=== PATIENT | male | born 1970 | race Caucasian/White ===

== ENCOUNTER 2020-12-15 17:01 | Emergency (ER) | payer MEDICAID ==
[~2020-12-15] VITALS: Ht 167.6 cm; Wt 72.6 kg
[2020-12-15 17:06] VITALS: BP 167/91
--- NOTE | 2020-12-15 17:14 | NUR ---
pt taken to bed 03 via wheelchair.
[2020-12-15] MEDS ORDERED: KETOROLAC 30 MG/ML VIAL IM ONE (17:25)
--- NOTE | 2020-12-15 17:33 | NUR ---
RAD AT BEDSIDE
--- NOTE | 2020-12-15 17:39 | NUR ---
50 Y/O M BIB SELF FROM HOME, PATIENT PRESENTS TO ED WITH C/O WOUND TO RIGHT FOOT X 3 WEEKS. BLOOD SUGAR 83 AT THIS TIME. DENIES N/V/D; SKIN IS PINK/WARM/DRY; AAOX4 AMBULATES WITH ASSIST; LUNGS CLEAR BL; HR EVEN AND REGULAR; PT DENIES ANY FEVER, CP, SOB, OR COUGH AT THIS TIME; PATIENT STATES PAIN OF 6/10 AT THIS TIME; VSS; PATIENT POSITIONED FOR COMFORT; HOB ELEVATED; BEDRAILS UP X2; BED DOWN. ER MD MADE AWARE OF PT STATUS. PMH: DENIES LESLEY
[2020-12-15] MEDS ORDERED: SULF-58 PO (17:57)
[2020-12-15] MEDS ORDERED: IBUP-2213 PO (17:57)
[2020-12-15] MEDS ORDERED: BACITRACIN OINT 500 UNITS/GM PKT TP ONE (18:05)
--- NOTE | 2020-12-15 18:48 | NUR ---
APPLIED DRESSING TO RIGHT FIRST AND SECOND TOE
[2020-12-15 18:55] VITALS: BP 167/91
--- NOTE | 2020-12-15 18:55 | NUR ---
D Addendum: 12/15/20 at 1855 by [facility] Patient discharged with v/s stable. Written and verbal after care instructions given and explained. Patient alert, oriented and verbalized understanding of instructions. Ambulatory with steady gait. All questions addressed prior to discharge. ID band removed. Patient advised to follow up with PMD. Rx of IBUPROFEN, SULFAMETHOXAZOLE/TRIMETHOPRIM given. Patient educated on indication of medication including possible reaction and side effects. Opportunity to ask questions provided and answered.
== END 2020-12-15 18:55 | disposition home or self-care (01) ==
LOC: MED 17:01
DX: L03.115 Cellulitis of right lower limb (principal)
CPT/HCPCS: 73630; 90471; 90715; 99283; J1885

== ENCOUNTER 2023-06-15 03:35 | Emergency (ER) | payer SELFPAY ==
[~2023-06-15] VITALS: Ht 167.6 cm; Wt 72.6 kg
[~2023-06-15 03:35] MED LIST: CEPH-588 PO; IBUP-2213 PO; SULF-58 PO
[2023-06-15 03:47] VITALS: BP 151/103; PULSE 103; RESP 18; TEMP 98.3; O2SAT 99
[2023-06-15] MEDS ORDERED: LIDOCAINE/EPI MPF 1%1:200000 30 ML VIAL INJ ONE (05:05)
[2023-06-15] MEDS ORDERED: NAPR-54 PO (05:24)
[2023-06-15] MEDS ORDERED: SULF-59 PO (05:24)
[2023-06-15] MEDS ORDERED: CHLO480L2 TP (05:24)
== END 2023-06-15 05:30 | disposition home or self-care (01) ==
LOC: MED 03:35
DX: L02.412 Cutaneous abscess of left axilla (principal); Z79.899 Other long term (current) drug therapy
CPT/HCPCS: 10060; 99282; J2001

== ENCOUNTER 2023-07-18 22:10 | Emergency (ER) | payer SELFPAY ==
[~2023-07-18] VITALS: Ht 167.6 cm; Wt 72.6 kg
[2023-07-18 22:10] VITALS: BP 102/63; PULSE 110; RESP 18; TEMP 97.8; O2SAT 96
[~2023-07-18 22:10] MED LIST changes: +CHLO480L2 TP; +NAPR-54 PO; +SULF-59 PO
[2023-07-19 00:04] VITALS: BP 102/63; PULSE 110; RESP 18; TEMP 97.8; O2SAT 96
== END 2023-07-18 23:00 | disposition left against medical advice (07) ==
LOC: MED 22:10
DX: M54.50 Low back pain, unspecified (principal); Z53.21 Procedure and treatment not carried out due to patient leaving prior to being seen by health care provider
CPT/HCPCS: 99281